=== PATIENT | male | born 1990 | race Caucasian/White ===

== ENCOUNTER 2024-08-12 10:44 | Emergency (ER) | payer BC, SELFPAY ==
[2024-08-12 10:45] VITALS: BP 145/88; PULSE 82; RESP 15; TEMP 35.9; O2SAT 97; BMI 45.1
--- NOTE | 2024-08-12 12:00 | RAD_ITS ---
PROCEDURE: KNEE 4 OR MORE VIEWS, 08/12/2024 REASON FOR EXAM: INJURY TECHNIQUE: AP, lateral, AP tunnel, and sunrise views of the RIGHT knee were obtained COMPARISON: None FINDINGS: Fracture/dislocation: None visible. Joint space(s): Very mild medial and patellofemoral compartment joint space loss with tiny osteophytes.. Soft tissues: Joint effusion. Foreign bodies: None visible. Bone mineralization: Unremarkable. Other: None. RAD/Knee 4 or More Views IMPRESSION: 1. Joint effusion without visible acute displaced fracture. If there is persis tent concern, consider CT or outpatient MRI to evaluate for occult intra-articular derangement. 2. Additional description as above. Reading Location: [id number]
--- NOTE | 2024-08-12 13:29 | ED.VIS.LOWEX ---
HPI History of Present Illness Chief Complaint: Lower Extremity Injury Informant: patient Narrative Narrative: Patient is a 34 year old male with history of prior torn medial meniscus and surgical repair presenting with increased pain and swelling of his right knee. Patient states that on Saturday, 3 days ago he twisted his knee and this caused him to fall down the stairs. He states he rolled down a flight of stairs. He denies any major head injury. He has had increased pain and swelling of his knee since. He has been taking [id number] ibuprofen and Tylenol with some relief but states it wears off quickly. Denies associate numbness or tingling. Has been told he needs another surgery but he will have to take too much time off of work. Has not seen Ortho in the area. Said crutches of knee braces in the past but does not know any of them are currently. No other complaints or concerns at this time. 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) Home Medications ?Medication ?Instructions ?Recorded ?Last Taken ?Type NK 07/15/24 Unknown History Allergy/AdvReac Type Severity Reaction Status Date / Time No Known Allergies Allergy Verified 08/12/24 10:45 Social History Smoking Status: Never smoker ROS [facility] ED Constitutional Constitutional ED: Denies chills or fever(s) Musculoskeletal Musculoskeletal: Reports other Details: Right knee pain and swelling Integumentary Denies Abrasions or rash Neurologic Neurologic: Denies paresthesias or weakness Hematologic/Lymphatic Hematologic/Lymphatic: Denies easy bleeding or easy bruising EXAM Physical Exam Const Vital Signs: 08/12/24 10:45 08/12/24 14:09 Temperature 96.7 F L 98.0 F Temperature Source Temporal Pulse Rate 82 79 Respiratory Rate 15 18 Blood Pressure 145/88 H 135/77 H Blood Pressure Mean 107 96 Pulse Ox 97 100 Oxygen Delivery Method Room Air Positive well nourished and well developed General Appearance ED: well developed and NAD HEENT normocephalic and atraumatic Neck full ROM Chest Wall inspection of chest normal Resp normal respiratory effort Cardio regular rate and regular rhythm Cardio Narrative: 2+ DP pulse on the right Extremity Extremity Narrative: Effusion with diffuse tenderness to the right knee. Effusion most pronounced on the inferior aspect of the anterior knee. Extensor mechanism is intact but is quite painful and difficult for him to fully extend his leg. There is laxity with medial stress of the knee present. Negative anterior posterior drawer test. No pinpoint bony tenderness. Compartments are soft. No overlying skin changes. Neuro oriented x3, moves all extremities and no sensory deficits noted Sensorium / Orientation: alert Psych mental status grossly normal Skin no wounds MDM MDM MDM Narrative Medical decision making narrative: Patient is evaluated for increased right knee pain and swelling after fall downstairs 3 days ago. He also had a twisting injury to his knee. Has prior meniscal injury. On exam patient has no obvious effusion. Protocol x-ray obtained reviewed by myself as well as radiology. There is an effusion there but no obvious acute fracture. Differential includes meniscal strain, tendon injury and possible partial tear of quadricep tendon versus patellar tendon. Do not think he has a complete tear given he still extend the knee and does not have a high riding or low riding patella. Patient will be placed in a knee immobilizer and given crutches. Given outpatient orthopedic follow-up. Counseled on RICE therapy. Given return precautions. Discharged home in stable condition. Radiography Diagnostic Testing: Clinical Impression(s) from Imaging Studies Knee X-Ray 08/12/24 12:00 IMPRESSION: 1. Joint effusion without visible acute displaced fracture. If there is persistent concern, consider CT or outpatient MRI to evaluate for occult intra-articular derangement. 2. Additional description as above. Reading Location: [facility] Discharge Plan Triage Chief Complaint: Lower Extremity Injury ED Provider: Susan Wallace Dx/Rx/DC Orders Instructions: ED Meniscal Injury Knee Poss, ED Knee Effusion Prescriptions: No Action NK Stand Alone Forms: ED Work / School Excuse Primary Care Provider: Care Physician,No Primary Referrals: Mark Anthony Sutton MD [Med Staff - Active Staff] - Care Physician,No Primary [Primary Care Provider] - Activity Restrictions/Additional Instructions: Wear knee immobilizer and use crutches to reduce bending and putting weight on the leg. Continue to alternate ibuprofen (600 mg every 6 hours) with [id number] Tylenol. Ice the knee. Avoid prolonged bending or kneeling. Is possibly could have further meniscal tear versus possible tendon injury. Please follow-up with orthopedics Print Language: Swedish Disposition Disposition: Home, Self Care Discharge Date/Time: 08/12/24 14:10
[2024-08-12 14:09] VITALS: BP 135/77; PULSE 79; RESP 18; TEMP 36.7; O2SAT 100
== END 2024-08-12 14:10 | disposition home or self-care (01) ==
PROVIDERS: Emergency Provider Emergency Medicine; Visit Provider Emergency Medicine
DX: M25.561 Pain in right knee (principal); M79.89 Other specified soft tissue disorders
CPT/HCPCS: 73564; 99284